=== PATIENT | male | born 1970 | race Caucasian/White ===

== ENCOUNTER 2017-01-23 09:58 | Emergency (ER) | payer OTHER ==
[~2017-01-23] VITALS: Ht 152.4 cm; Wt 81.0 kg
[~2017-01-23 09:58] MED LIST: ALPR0.5T PO; CIPR500T4 PO; MESA1.2T PO; METR500T PO; ZOLP10TA PO
[2017-01-23 10:02] VITALS: Ht 152.4 cm; Wt 81.0 kg
[2017-01-23] MEDS ORDERED: SOD CHLORIDE 0.9% 1,000 ML IV STA ×2 (10:04→11:59)
[2017-01-23] MEDS ORDERED: ONDANSETRON 4 MG INJ IV STA (10:18)
[2017-01-23] MEDS ORDERED: HYDROmorphONE 1 MG/ML SYG IV STA (10:18)
[2017-01-23] MEDS ORDERED: FAMOTIDINE 20 MG INJ IV ONE (10:30)
[2017-01-23] MEDS ORDERED: METHYLPREDNISOLONE 125 MG INJ IV ONE (10:30)
[2017-01-23 10:52] LABS: ADD SCAN DIFF NO
[2017-01-23 10:57] LABS: BASOPHILS % 0.2 % (0.0-2.0); HEMATOCRIT 43.9 % (42.0-52.0); HEMOGLOBIN 15.2 g/dl (14.0-18.0); LYMPHOCYTES # 1.6 10^3/ul (0.8-2.9); MEAN CORPUSCULAR HEMOGLOBIN 29.8 pg (29.0-33.0); MEAN CORPUSCULAR HGB CONC 34.6 g/dl (32.0-37.0); MEAN CORPUSCULAR VOLUME 86.1 fl (82.0-101.0); MEAN PLATELET VOLUME 9.9 fl (7.4-10.4); MONOCYTE # 0.5 10^3/ul (0.3-0.9); MONOCYTES % 7.2 % (0.0-11.0); NEUTROPHIL # 4.3 10^3/ul (1.6-7.5); NEUTROPHILS % 67.4 % (39.0-77.0); PLATELET COUNT 170 10^3/UL (140-415); RED CELL DISTRIBUTION WIDTH 12.1 % (11.5-14.5); WHITE BLOOD COUNT 6.4 10^3/ul (4.8-10.8)
[2017-01-23 11:29] LABS: ADD UMIC YES; UR ASCORBIC ACID NEGATIVE (NEGATIVE); UR BILIRUBIN (Dip) NEGATIVE (NEGATIVE); UR BLOOD (Dip) 1+ mg/dL (NEGATIVE); UR CLARITY CLEAR (CLEAR); UR COLOR YELLOW (YELLOW); UR GLUCOSE (Dip) NEGATIVE (NEGATIVE); UR KETONES (Dip) TRACE mg/dL (NEGATIVE); UR LEUKOCYTE ESTERASE (Dip) NEGATIVE Leu/ul (NEGATIVE); UR MUCUS MANY /HPF (NONE SEEN); UR NITRITE (Dip) NEGATIVE (NEGATIVE); UR RBC 2 /HPF (0-5); UR SPECIFIC GRAVITY (Dip) 1.023 (1.003-1.030); UR TOTAL PROTEIN (Dip) NEGATIVE (NEGATIVE); UR UROBILINOGEN (Dip) NEGATIVE (NEGATIVE)
[2017-01-23] MEDS ORDERED: CIPROFLOXACIN 500 MG TAB PO ONE (11:30)
[2017-01-23] MEDS ORDERED: metroNIDAZOLE 500 MG TAB PO ONE (11:30)
[2017-01-23 11:55] LABS: ALBUMIN/GLOBULIN RATIO 1.92; BILIRUBIN,INDIRECT 0.5 mg/dl (0-1.1); BILIRUBIN,TOTAL 0.5 mg/dl (0.2-1.3); CALCIUM 9.4 mg/dl (8.4-10.2); CREATININE 1.23 mg/dl (0.61-1.24); POTASSIUM 3.7 mmol/L (3.5-5.1); TOTAL PROTEIN 7.6 g/dl (6.1-8.1)
--- NOTE | 2017-01-23 12:18 | ERD ---
ER Documentation Chief Complaint Date/Time DATE: 01/23/17 TIME: 12:16 Chief Complaint ABD PAIN X 1 WEEK HPI This is a 46-year-old male who presents to the emergency room for evaluation of abdominal pain and cramping for the past week. The patient does have a history of Crohn's disease. He does state that he is taking lialda for his Crohn's. He denies any vomiting but does state that he has a diarrhea which she describes as mucousy. The patient was brought to the ER for further evaluation. He denies any fevers associated with this. ROS All systems reviewed and are negative except as per history of present illness. Medications Home Meds Active Scripts Metronidazole* (Flagyl*) 500 Mg Tablet, 500 MG PO Q6, #40 TAB Prov:NIC MARINELLI Y 04/15/15 Ciprofloxacin Hcl* (Ciprofloxacin Hcl*) 500 Mg Tablet, 500 MG PO BID, #20 TAB Prov:NIC MARINELLI Y 04/15/15 Reported Medications Alprazolam* (Xanax*) 0.5 Mg Tab, 0.5 MG PO Q8H Y for ANXIETY, TAB 04/14/15 Zolpidem Tartrate* (Ambien*) 10 Mg Tablet, 10 MG PO HS Y for INSOMNIA, TAB 04/14/15 Mesalamine* (Lialda*) 1.2 G Tablet.dr, 1.2 GM PO BID, TAB 04/14/15 Allergies Allergies: Coded Allergies: No Known Allergy (Unverified , 04/14/15) PMhx/Soc History of Surgery: Yes (abd surgery post spider bite years ago) Anesthesia Reaction: No Hx Neurological Disorder: No Hx Respiratory Disorders: No Hx Cardiac Disorders: No Hx Psychiatric Problems: No Hx Miscellaneous Medical Probl: No Hx Alcohol Use: No Hx Substance Use: No Hx Tobacco Use: No Physical Exam Vitals Vital Signs Date Time Temp Pulse Resp B/P Pulse Ox O2 Delivery O2 Flow Rate FiO2 01/23/17 10:02 99.1 88 18 137/86 99 Physical Exam Const: No acute distress Head: Atraumatic Eyes: Normal Conjunctiva ENT: Dry mucous membranes, normal External Ears, Nose and Mouth. Neck: Full range of motion..~ No meningismus. Resp: Clear to auscultation bilaterally Cardio: Regular rate and rhythm, no murmurs Abd: Soft, non tender, non distended. Normal bowel sounds Skin: No petechiae or rashes Back: No midline or flank tenderness Ext: No cyanosis, or edema Neur: Awake and alert Psych: Normal Mood and Affect Result Diagram: 01/23/17 1010 01/23/17 1010 Results 24 hrs Laboratory Tests Test 01/23/17 09:43 01/23/17 10:10 Bedside Glucose 109mg/dL White Blood Count 6.410^3/ul Red Blood Count 5.1010^6/ul Hemoglobin 15.2g/dl Hematocrit 43.9% Mean Corpuscular Volume 86.1fl Mean Corpuscular Hemoglobin 29.8pg Mean Corpuscular Hemoglobin Concent 34.6g/dl Red Cell Distribution Width 12.1% Platelet Count 99832^3/UL Mean Platelet Volume 9.9fl Neutrophils % 67.4% Lymphocytes % 25.0% Monocytes % 7.2% Eosinophils % 0.0% Basophils % 0.2% Nucleated Red Blood Cells % 0.0/100WBC Neutrophils # 4.310^3/ul Lymphocytes # 1.610^3/ul Monocytes # 0.510^3/ul Eosinophils # 0.010^3/ul Basophils # 0.010^3/ul Nucleated Red Blood Cells # 0.010^3/ul Urine Color YELLOW Urine Clarity CLEAR Urine pH 5.0 Urine Specific [place] 1.023 Urine Ketones TRACEmg/dL Urine Nitrite NEGATIVEmg/dL Urine Bilirubin NEGATIVEmg/dL Urine Urobilinogen NEGATIVEmg/dL Urine Leukocyte Esterase NEGATIVELeu/ul Urine Microscopic RBC 2/HPF Urine Microscopic WBC 1/HPF Urine Mucus MANY/HPF Urine Hemoglobin 1+mg/dL Urine Glucose NEGATIVEmg/dL Urine Total Protein NEGATIVEmg/dl Sodium Level 136mmol/L Potassium Level 3.7mmol/L Chloride Level 99mmol/L Carbon Dioxide Level 28mmol/L Anion Gap 13 Blood Urea Nitrogen 15mg/dl Creatinine 1.23mg/dl Glucose Level 102mg/dl Calcium Level 9.4mg/dl Total Bilirubin 0.5mg/dl Direct Bilirubin 0.00mg/dl Indirect Bilirubin 0.5mg/dl Aspartate Amino Transf (AST/SGOT) 38IU/L Alanine Aminotransferase (ALT/SGPT) 55IU/L Alkaline Phosphatase 85IU/L Total Protein 7.6g/dl Albumin 5.0g/dl Globulin 2.60g/dl Albumin/Globulin Ratio 1.92 Lipase 192U/L Current Medications Medications (Trade) Dose Ordered Sig/Yola Route PRN Reason Start Time Stop Time Status Last Admin Dose Admin Sodium Chloride (NS) 1,000 ml @ 1,000 mls/hr Q1H STAT IV 01/23/17 10:04 01/23/17 11:03 DC 01/23/17 10:32 Methylprednisolone Sodium Succinate (Solu-Medrol) 125 mg ONCE ONCE IV 01/23/17 10:30 01/23/17 10:31 DC 01/23/17 10:27 Hydromorphone HCl (Dilaudid) 0.5 mg ONCE STAT IV 01/23/17 10:18 01/23/17 10:19 DC 01/23/17 10:26 Ondansetron HCl (Zofran Inj) 4 mg ONCE STAT IV 01/23/17 10:18 01/23/17 10:19 DC 01/23/17 10:27 Famotidine (Pepcid Iv) 20 mg ONCE ONCE IV 01/23/17 10:30 01/23/17 10:31 DC 01/23/17 10:27 Ciprofloxacin (Cipro) 500 mg ONCE ONCE PO 01/23/17 11:30 01/23/17 11:31 DC 01/23/17 12:02 Metronidazole 500 mg 500 mg ONCE ONCE PO 01/23/17 11:30 01/23/17 11:31 DC Sodium Chloride (NS) 1,000 ml @ 1,000 mls/hr Q1H STAT IV 01/23/17 11:59 01/23/17 12:58 Procedures/MDM This 46-year-old male presents to the ER for evaluation of abdominal pain and cramping. The patient does have a history of Crohn's disease and also states he has been having diarrhea. When I evaluated this patient he was nontoxic- appearing, he was afebrile. The patient did have dry mucous membranes. Lab work was obtained which is within normal limits. The patient was given 2 L of IV fluid, Zofran, Pepcid, and 1 mg Dilaudid for pain. The patient does state he is feeling better on my reexamination. The patient is tolerating p.o. at this time. He will be discharged at this time with a prescription for ciprofloxacin, and Flagyl for the next 7 days. Departure Diagnosis: Primary Impression: Abdominal pain Additional Impression: Crohns disease Condition: Stable ROBERT AGOSTO DO Jan 23, 2017 12:18
[2017-01-23] MEDS ORDERED: CIPR500T4 PO (12:19)
[2017-01-23] MEDS ORDERED: METR500T PO (12:19)
[2017-01-23 13:20] VITALS: BP 118/64; PULSE 78; RESP 18
== END 2017-01-23 13:22 | disposition home or self-care (01) ==
LOC: FTE 09:58
DX: R10.9 Unspecified abdominal pain (principal); K50.90 Crohn's disease, unspecified, without complications
CPT/HCPCS: 36415; 80053; 81001; 82962; 83690; 85025; 96374; 96375; 99284; J1170; J2405; J2930; J7030

== ENCOUNTER 2018-06-24 14:12 | Day surgery (SDC) | END 2018-06-24 16:33 | disposition home or self-care (01) ==

== ENCOUNTER 2018-07-04 21:44 | Emergency (ER) | END 2018-07-05 00:40 | disposition home or self-care (01) ==

== ENCOUNTER 2018-08-02 09:42 | Emergency (ER) | payer OTHER ==
[~2018-08-02] VITALS: Ht 182.9 cm; Wt 81.8 kg
[~2018-08-02 09:42] MED LIST changes: -ALPR0.5T PO; +DICY10CA40 PO; +HYDR-3980 PO; -MESA1.2T PO; +NO MEDS; -ZOLP10TA PO
[2018-08-02 09:52] VITALS: Ht 182.9 cm; Wt 81.8 kg
[2018-08-02] MEDS ORDERED: morphine 4 MG/ML VIAL IV STA (10:01)
[2018-08-02] MEDS ORDERED: KETOROLAC 15 MG INJ IV STA (10:01)
[2018-08-02] MEDS ORDERED: LACTATED RINGER'S 1,000 ML IV STA (10:01)
[2018-08-02] MEDS ORDERED: ONDANSETRON 4 MG INJ IV STA (10:01)
[2018-08-02] MEDS ORDERED: DICYCLOMINE 10 MG CAP PO ONE (10:30)
[2018-08-02] MEDS ORDERED: LIDOCAINE/MYLANTA 40 ML BTL PO ONE (10:30)
[2018-08-02] MEDS ORDERED: FAMOTIDINE 20 MG INJ IV ONE (10:30)
[2018-08-02] MEDS ORDERED: METOCLOPRAMIDE 10 MG INJ IV ONE (11:00)
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
[2018-08-02] MEDS ORDERED: ONDA4TAB14 PO (12:39)
[2018-08-02] MEDS ORDERED: METO10TA3 PO (12:39)
[2018-08-02 13:01] VITALS: BP 106/63; PULSE 90; RESP 17
== END 2018-08-02 13:02 | disposition home or self-care (01) ==
LOC: E/R 09:42
DX: R11.2 Nausea with vomiting, unspecified (principal); R19.7 Diarrhea, unspecified; M54.6 Pain in thoracic spine
CPT/HCPCS: 36415; 80053; 83690; 85025; 96374; 96375; 99284; J1885; J2270; J2405; J2765; J7120

== ENCOUNTER 2019-03-05 15:37 | Emergency (ER) | payer OTHER ==
[~2019-03-05] VITALS: Ht 182.9 cm; Wt 81.0 kg
[~2019-03-05 15:37] MED LIST changes: +CEPH-443 PO; -CIPR500T4 PO; +CLIN300C10 PO; -DICY10CA40 PO; -HYDR-3980 PO; +IBUP-1542 PO; +METO10TA3 PO; -METR500T PO; -NO MEDS; +ONDA4TAB14 PO; +PRED20TA PO
[2019-03-05 15:43] VITALS: BP 135/86; PULSE 78; RESP 18; Ht 182.9 cm; Wt 81.0 kg
[2019-03-05] MEDS ORDERED: CLINDAMYCIN 600 MG/D5W (PMX) 50 ML IVPB SCH (16:00)
[2019-03-05] MEDS ORDERED: DEXAMETHASONE 10 MG/ML 1 ML INJ IV ONE (16:00)
[2019-03-05] MEDS ORDERED: SOD CHLORIDE 0.9% 500 ML IV ONE (16:00)
== END 2019-03-05 17:57 | disposition home or self-care (01) ==
LOC: E/R 15:37 → FTE 17:57
DX: L03.211 Cellulitis of face (principal)
CPT/HCPCS: 76536; 96365; 96375; 99285; J1100; J7040

== ENCOUNTER 2019-03-11 09:27 | Emergency (ER) | payer OTHER ==
[~2019-03-11] VITALS: Ht 182.9 cm; Wt 86.3 kg
[2019-03-11 09:28] VITALS: Ht 182.9 cm; Wt 86.3 kg
[2019-03-11] MEDS ORDERED: LIDOCAINE 5% 35 GM OINT TOP ONE (10:00)
[2019-03-11] MEDS ORDERED: IBUPROFEN 600 MG TAB PO ONE (10:00)
[2019-03-11] MEDS ORDERED: OXYCODONE/ACETAMINOPHEN (5/325) TAB PO ONE (10:00)
[2019-03-11] MEDS ORDERED: LIDOCAINE 1% (MDV) 20 ML INJ SC ONE (10:00)
[2019-03-11 11:26] VITALS: BP 139/93; PULSE 68; RESP 17
== END 2019-03-11 11:27 | disposition home or self-care (01) ==
LOC: E/R 09:27
DX: L02.01 Cutaneous abscess of face (principal)